=== PATIENT | female | born 1990 | race Caucasian/White ===

== ENCOUNTER 2016-09-27 00:55 | Emergency (ER) | payer OTHER ==
[~2016-09-27] VITALS: Ht 160 cm; Wt 68.2 kg
[~2016-09-27 00:55] MED LIST: MOTRIN PO; PRENTAB7 PO; TYLE325T5 PO
[2016-09-27 02:29] LABS: BASO # 0.1 K/mm3 (0.0-0.2); BASO % 0.7 % (0.0-1.0); EOS # 0.1 K/mm3 (0.0-0.50); EOS % 1.3 % (0.0-3.0); LARGE UNSTAINED CELL # 0.1 K/mm3 (0.0-0.4); LARGE UNSTAINED CELL % 1.4 % (0.0-4.0); LYMPH # 2.5 K/mm3 (1.5-6.5); LYMPH % 23.8 % (24.0-44.0); MEAN CORPUSCULAR HEMOGLOBIN 32.2 pg (27.0-33.0); MEAN CORPUSCULAR HGB CONC 34.4 g/dl (32.0-36.5); MEAN CORPUSCULAR VOLUME 93.6 fl (80.0-96.0); MONO # 0.6 K/mm3 (0.0-0.8); MONO % 6.2 % (0.0-5.0); NEUTROPHILS # 6.6 K/mm3 (1.8-7.7); NEUTROPHILS % 66.7 % (36.0-66.0); PLATELET COUNT, AUTOMATED 264 k/mm3 (150-450); RED CELL DISTRIBUTION WIDTH 12.6 % (11.5-14.5); WHITE BLOOD COUNT 9.9 K/mm3 (4.0-10.0)
[2016-09-27 02:33] LABS: CONTROL LINE HCG INT CTR LINE PRESENT; INR 0.92
--- NOTE | 2016-09-27 03:50 | REPUSA ---
CLINICAL HISTORY: Vaginal bleeding. COMPARISON: Not provided. TECHNIQUE: High resolution examination consisting of transvaginal ultrasound performed. FINDINGS: Heterogeneous echotexture of the uterus. Uterus is normal in size measuring 8.4x3.9x4.8 cm. Endometrium is normal in thickness measuring 5.3 mm. Anteverted uterus. Right ovary measures 3x2.3x2.2 cm. Left ovary measures 2.7x2.2x2.1 cm. Normal bilateral ovarian flow. Trace free fluid in the posterior cul-de-sac. IMPRESSION: Heterogeneous echotexture of the uterus. Trace free fluid in the pelvis.
[2016-09-27 04:33] VITALS: BP 122/73
--- NOTE | 2016-09-27 08:10 | ED PDOC ---
Post-Departure Follow-Up certified letter sent to patient Laurel Sy MD Sep 27, 2016 08:10
== END 2016-09-27 04:47 | disposition home or self-care (01) ==
LOC: M ED 00:55
DX: N93.8 Other specified abnormal uterine and vaginal bleeding (principal)

== ENCOUNTER 2017-03-09 12:06 | Emergency (ER) | payer OTHER ==
[2017-03-09 16:04] LABS: BASO % 0.3 % (0.0-1.0); EOS # 0.1 10^3/uL (0.0-0.50); EOS % 0.4 % (0.0-3.0); HEMATOCRIT 32.3 % (36.0-47.0); HEMOGLOBIN 11.3 g/dl (12.0-16.0); IMMATURE GRANULOCYTE # 0.1 10^3/uL (0-0); IMMATURE GRANULOCYTE % 0.8 % (0-0); LYMPH # 2.1 10^3/uL (1.5-6.5); LYMPH % 15.4 % (24.0-44.0); MEAN CORPUSCULAR HEMOGLOBIN 32.1 pg (27.0-33.0); MEAN CORPUSCULAR VOLUME 91.8 fl (80.0-96.0); MONO # 0.7 10^3/uL (0.0-0.8); MONO % 5.4 % (0.0-5.0); NEUTROPHILS # 10.4 10^3/uL (1.8-7.7); NEUTROPHILS % 77.7 % (36.0-66.0); PLATELET COUNT, AUTOMATED 259 10^3/uL (150-450); RED BLOOD COUNT 3.52 10^6/uL (4.00-5.40); RED CELL DISTRIBUTION WIDTH 12.6 % (11.5-14.5); WHITE BLOOD COUNT 13.4 10^3/uL (4.0-10.0)
[2017-03-09 16:27] LABS: CONTROL LINE MONO RF C INT CTR LINE PRESENT; MONO REFLEX EBV COMP NEGATIVE (NEGATIVE)
[2017-03-09 16:30] LABS: ERYTHROCYTE SEDIMENTATION RATE 18 mm/hr (0-20)
[2017-03-09 16:33] LABS: ALBUMIN 3.4 GM/DL (3.2-5.2); ALKALINE PHOSPHATASE 51 U/L (45-117); ALT/SGPT 24 U/L (12-78); ANION GAP 7 MEQ/L (8-16); AST/SGOT 19 U/L (7-37); BILIRUBIN,DIRECT < 0.1 MG/DL (0.0-0.2); BILIRUBIN,TOTAL 0.3 MG/DL (0.2-1.0); BLOOD UREA NITROGEN 9 MG/DL (7-18); CALCIUM LEVEL 8.6 MG/DL (8.5-10.1); CARBON DIOXIDE LEVEL 28 MEQ/L (21-32); CHLORIDE LEVEL 102 MEQ/L (98-107); CREATININE FOR GFR 0.58 MG/DL (0.55-1.02); GLOMERULAR FILTRATION RATE > 60.0 (>60); GLUCOSE, FASTING 81 MG/DL (70-105); POTASSIUM SERUM 3.7 MEQ/L (3.5-5.1); SODIUM LEVEL 137 MEQ/L (136-145); TOTAL PROTEIN 6.8 GM/DL (6.4-8.2)
[2017-03-12 00:07] LABS: EBV VIRAL CAPSID AG IgM <36.0 U/mL (0.0-35.9)
[2017-03-12 00:07] LABS: EBV VIRAL CAPSID AG IgG <18.0 U/mL (0.0-17.9)
== END 2017-03-09 17:18 | disposition home or self-care (01) ==
LOC: M ED 12:06
DX: L27.0 Generalized skin eruption due to drugs and medicaments taken internally (principal); T36.0X5A Adverse effect of penicillins, initial encounter; Z87.891 Personal history of nicotine dependence
CPT/HCPCS: 80076

== ENCOUNTER → 2017-03-26 | Outpatient (CLI) | payer OTHER ==
[2017-03-26 18:57] LABS: BASO # 0.1 10^3/uL (0.0-0.2); BASO % 0.5 % (0.0-1.0); EOS # 0.1 10^3/uL (0.0-0.50); EOS % 0.5 % (0.0-3.0); HEMATOCRIT 35.2 % (36.0-47.0); HEMOGLOBIN 11.8 g/dl (12.0-16.0); IMMATURE GRANULOCYTE # 0.1 10^3/uL (0-0); IMMATURE GRANULOCYTE % 0.8 % (0-0); LYMPH # 1.6 10^3/uL (1.5-6.5); LYMPH % 14.2 % (24.0-44.0); MEAN CORPUSCULAR HEMOGLOBIN 31.6 pg (27.0-33.0); MEAN CORPUSCULAR HGB CONC 33.5 g/dl (32.0-36.5); MEAN CORPUSCULAR VOLUME 94.1 fl (80.0-96.0); MONO # 0.6 10^3/uL (0.0-0.8); MONO % 5.8 % (0.0-5.0); NEUTROPHILS # 8.7 10^3/uL (1.8-7.7); NEUTROPHILS % 78.2 % (36.0-66.0); PLATELET COUNT, AUTOMATED 299 10^3/uL (150-450); RED BLOOD COUNT 3.74 10^6/uL (4.00-5.40); RED CELL DISTRIBUTION WIDTH 12.8 % (11.5-14.5); WHITE BLOOD COUNT 11.1 10^3/uL (4.0-10.0)
[2017-03-26 22:26] LABS: CHLAMYDIA DNA AMPLIFICATION NEGATIVE (NEGATIVE); GC DNA AMPLIFICATION NEGATIVE (NEGATIVE)
[2017-03-29 11:33] LABS: RUBELLA IgG QUALITATIVE IMMUNE (IMMUNE)
[2017-03-29 11:46] LABS: HBsAg Prenatal NEGATIVE (NEGATIVE)
[2017-03-29 12:02] LABS: HEPATITIS C VIRUS ABY INDEX 0.1 INDEX (<0.8)
[2017-03-29 12:03] LABS: HIV 1&2 SCREEN CENTAUR NEGATIVE (NEGATIVE)
== END ==
LOC: M SMT 11:33
DX: Z36.0 Encounter for antenatal screening for chromosomal anomalies (principal); Z3A.18 18 weeks gestation of pregnancy
CPT/HCPCS: 86762

== ENCOUNTER → 2017-04-01 | Outpatient (CLI) | payer OTHER | LOC: M RAD 11:48 | DX: Z3A.18 18 weeks gestation of pregnancy (principal) | CPT/HCPCS: 76811 ==

== ENCOUNTER → 2017-05-20 | Outpatient (CLI) | payer OTHER ==
[2017-05-20 13:33] LABS: BASO # 0.1 10^3/uL (0.0-0.2); BASO % 0.6 % (0.0-1.0); EOS # 0.2 10^3/uL (0.0-0.50); EOS % 1.4 % (0.0-3.0); HEMATOCRIT 30.9 % (36.0-47.0); HEMOGLOBIN 10.3 g/dl (12.0-16.0); IMMATURE GRANULOCYTE % 1.8 % (0-3.0); LYMPH # 1.9 10^3/uL (1.5-6.5); LYMPH % 15.7 % (24.0-44.0); MEAN CORPUSCULAR HEMOGLOBIN 31.9 pg (27.0-33.0); MEAN CORPUSCULAR HGB CONC 33.3 g/dl (32.0-36.5); MEAN CORPUSCULAR VOLUME 95.7 fl (80.0-96.0); MONO # 0.7 10^3/uL (0.0-0.8); MONO % 5.5 % (0.0-5.0); NEUTROPHILS # 9.3 10^3/uL (1.8-7.7); PLATELET COUNT, AUTOMATED 293 10^3/uL (150-450); RED BLOOD COUNT 3.23 10^6/uL (4.00-5.40); RED CELL DISTRIBUTION WIDTH 13.3 % (11.5-14.5); WHITE BLOOD COUNT 12.4 10^3/uL (4.0-10.0)
[2017-05-20 13:56] LABS: GLUCOSE CHALLENGE TEST 1 HOUR 107 MG/DL (LESS THAN 140)
== END ==
LOC: M SMT 09:48
DX: Z34.83 Encounter for supervision of other normal pregnancy, third trimester (principal)
CPT/HCPCS: 82950

== ENCOUNTER 2017-07-02 18:09 | Outpatient (CLI) | payer OTHER ==
[2017-07-02 19:13] LABS: APPEARANCE, URINE HAZY (CLEAR); BACTERIA, URINE AUTO 1+ (NEGATIVE); BILIRUBIN, URINE AUTO NEGATIVE (NEGATIVE); BLOOD, URINE BLOOD NEGATIVE (NEGATIVE); COLOR, URINE YELLOW (YELLOW); GLUCOSE, URINE (UA) AUTO NEGATIVE (NEGATIVE); KETONE, URINE AUTO 1+ mg/dL (NEGATIVE); LEUKOCYTE ESTERASE, URINE AUTO 1+ (NEGATIVE); MUCUS, URINE SMALL (NEGATIVE); NITRITE, URINE AUTO NEGATIVE (NEGATIVE); PROTEIN, URINE AUTO 1+ mg/dL (NEGATIVE); RBC, URINE AUTO 2 /HPF (0-3); SPECIFIC GRAVITY URINE AUTO 1.027 (1.002-1.035); SQUAMOUS EPITHELIAL CELL UR AU 5 /HPF (0-6); UROBILINOGEN, URINE AUTO 0.2 mg/dL (0.0-2.0); WBC, URINE AUTO 2 /HPF (0-3)
[2017-07-02] MEDS: LR 1,000 ML IV (21:45)
[2017-07-02] MEDS: TERBUTALINE SULFATE 1 MG/ML VIAL (J3105) SC (21:47)
[2017-07-02 21:59] LABS: BASO # 0.1 10^3/uL (0.0-0.2); BASO % 0.4 % (0.0-1.0); EOS # 0.1 10^3/uL (0.0-0.50); EOS % 0.3 % (0.0-3.0); HEMATOCRIT 34.3 % (36.0-47.0); HEMOGLOBIN 11.5 g/dl (12.0-15.5); LYMPH # 2.3 10^3/uL (1.5-6.5); LYMPH % 11.7 % (24.0-44.0); MEAN CORPUSCULAR HEMOGLOBIN 31.9 pg (27.0-33.0); MEAN CORPUSCULAR HGB CONC 33.5 g/dl (32.0-36.5); MONO # 1.1 10^3/uL (0.0-0.8); MONO % 5.4 % (0.0-5.0); NEUTROPHILS # 15.7 10^3/uL (1.8-7.7); NEUTROPHILS % 80.2 % (36.0-66.0); PLATELET COUNT, AUTOMATED 307 10^3/uL (150-450); RED BLOOD COUNT 3.61 10^6/uL (4.00-5.40); RED CELL DISTRIBUTION WIDTH 13.2 % (11.5-14.5); WHITE BLOOD COUNT 19.6 10^3/uL (4.0-10.0)
== END 2017-07-02 23:35 | disposition home or self-care (01) ==
LOC: M LDO 18:09
DX: O09.213 Supervision of pregnancy with history of pre-term labor, third trimester (principal); Z3A.32 32 weeks gestation of pregnancy; O47.03 False labor before 37 completed weeks of gestation, third trimester
CPT/HCPCS: J3105

== ENCOUNTER 2017-07-03 13:27 | Inpatient (IN) | payer OTHER ==
[2017-07-03] MEDS: PRENATAL VITAMINS CHEWABLE TABLET PO (09:00)
[2017-07-03 14:04] LABS: HEMATOCRIT 32.3 % (36.0-47.0); HEMOGLOBIN 11.3 g/dl (12.0-15.5); MEAN CORPUSCULAR HEMOGLOBIN 32.2 pg (27.0-33.0); PLATELET COUNT, AUTOMATED 330 10^3/uL (150-450); RED BLOOD COUNT 3.51 10^6/uL (4.00-5.40); RED CELL DISTRIBUTION WIDTH 13.2 % (11.5-14.5); WHITE BLOOD COUNT 16.3 10^3/uL (4.0-10.0)
[2017-07-03] MEDS ORDERED: OXYTOCIN 30 UNITS IN 0.9% NaCl 500ML IV BAG (J2590) As Ordered (14:08)
[2017-07-03] MEDS: LR 1,000 ML IV (14:17)
[2017-07-03] MEDS: OXYTOCIN DRIP 30 UNITS in APPROPRIATE DILUENT 1 EA IV (14:22)
[2017-07-03 14:27] LABS: CORD GAS ABE V 1.3; CORD GAS HCO3 V 23.2 MEQ/L; CORD GAS O2 SAT V 79.2 %; CORD GAS PCO2 V 29.2 mmHg; CORD GAS PH V 7.518 UNITS; CORD GAS PO2 V 29.4 mmHg; CORD GAS SBC V 25.2 MEQ/L; CORD GAS TCO2 V 24.1 MEQ/L
[2017-07-03 14:29] LABS: CORD GAS ABE A 0.2; CORD GAS HCO3 A 25.1 MEQ/L; CORD GAS O2 SAT A 61.5 %; CORD GAS PCO2 A 41.6 mmHg; CORD GAS PH A 7.399 UNITS; CORD GAS PO2 A 23.8 mmHg; CORD GAS SBC A 23.9 MEQ/L; CORD GAS TCO2 A 26.4 MEQ/L
[2017-07-03] MEDS ORDERED: MEASLES,MUMPS,RUBELLA VACCINE INJ (MMR-II) (90707) SC (14:30)
[2017-07-03] MEDS ORDERED: IBUPROFEN 800 MG TAB PO (14:30)
[2017-07-03] MEDS ORDERED: ACETAMINOPHEN 500 MG TAB PO (14:30)
[2017-07-03] MEDS ORDERED: METHYLERGONOVINE MALEATE 0.2 MG TAB PO (14:30)
[2017-07-03] MEDS ORDERED: DIBUCAINE 1% OINTMENT 30GM TOP (14:30)
[2017-07-03] MEDS ORDERED: RHOGAM 300 MCG (1500 IU) INJ (J2790) IM (14:30)
[2017-07-03 15:33] LABS: AMPHETAMINES URINE REFLEX NEGATIVE (NEGATIVE); BARBITURATES URINE REFLEX NEGATIVE (NEGATIVE); BENZODIAZEPINES URINE REFLEX NEGATIVE (NEGATIVE); CANNABINOIDS URINE REFLEX NEGATIVE (NEGATIVE); COCAINE METABOLITE URINE REFLE NEGATIVE (NEGATIVE); METHADONE URINE REFLEX NEGATIVE (NEGATIVE); OPIATES URINE REFLEX NEGATIVE (NEGATIVE); PHENCYCLIDINE URINE REFLEX NEGATIVE (NEGATIVE)
[2017-07-04] MEDS: LR 1,000 ML IV ×2 (06:17→14:17)
[2017-07-04] MEDS: DOCUSATE SODIUM 100 MG CAP PO (08:27)
[2017-07-04] MEDS: PRENATAL VITAMINS CHEWABLE TABLET PO (08:27)
[2017-07-05] MEDS: LR 1,000 ML IV ×3 (03:49→03:51)
[2017-07-05] MEDS: PRENATAL VITAMINS CHEWABLE TABLET PO (07:39)
== END 2017-07-05 09:45 | disposition home or self-care (01) | DRG 560 ==
LOC: M LDO 13:27 → M LDI 13:49 → M OBS 15:55
PROVIDERS: Obstetrics & Gynecology
PROC: 10E0XZZ Delivery of Products of Conception, External Approach (ICD-10-PCS; principal; 2017-07-03)
PROC: 10907ZC Drainage of Amniotic Fluid, Therapeutic from Products of Conception, Via Natural or Artificial Opening (ICD-10-PCS; 2017-07-03)
DX: O60.14X0 Preterm labor third trimester with preterm delivery third trimester, not applicable or unspecified (principal); O69.81X0 Labor and delivery complicated by cord around neck, without compression, not applicable or unspecified; Z3A.32 32 weeks gestation of pregnancy; Z87.891 Personal history of nicotine dependence; Z37.0 Single live birth

== ENCOUNTER → 2017-09-10 | Outpatient (CLI) | payer OTHER | LOC: M ADAMS 14:29 | DX: M25.562 Pain in left knee (principal) | CPT/HCPCS: 73564 ==

== ENCOUNTER 2018-01-21 09:09 | Emergency (ER) | payer OTHER | END 2018-01-21 10:46 | disposition home or self-care (01) | LOC: M ED 09:09 | DX: S16.1XXA Strain of muscle, fascia and tendon at neck level, initial encounter (principal); V49.49XA Driver injured in collision with other motor vehicles in traffic accident, initial encounter; Y92.410 Unspecified street and highway as the place of occurrence of the external cause | CPT/HCPCS: 70450 ==

== ENCOUNTER 2018-07-02 07:45 | Emergency (ER) | payer OTHER ==
[~2018-07-02] VITALS: Ht 160 cm; Wt 71.1 kg
[~2018-07-02 07:45] MED LIST changes: +AMOX875T PO; +BENA25TA10 PO; +COLA100C5 PO; +CYCL10TA PO; +IBUP-1114 PO; +IBUP80TA PO; +MAPA500T2 PO; +PENI250REC PO; +PRENTAB9 PO
[2018-07-02 09:39] VITALS: BP 105/61
--- NOTE | 2018-07-02 09:52 | REP ---
RIGHT WRIST, FOUR VIEWS: HISTORY: Popping sensation. There is no acute fracture or dislocation. The joint spaces are normal in appearance. IMPRESSION: There is no acute fracture or dislocation. Electronically Signed by Hussain Sapp MD 07/02/2018 09:53 A
== END 2018-07-02 09:48 | disposition home or self-care (01) ==
LOC: M ED 07:45
DX: S69.91XA Unspecified injury of right wrist, hand and finger(s), initial encounter (principal); X58.XXXA Exposure to other specified factors, initial encounter; Y92.89 Other specified places as the place of occurrence of the external cause; Y99.0 Civilian activity done for income or pay; F17.210 Nicotine dependence, cigarettes, uncomplicated

== ENCOUNTER 2018-07-07 17:59 | Emergency (ER) | payer OTHER ==
[~2018-07-07] VITALS: Ht 160 cm; Wt 69.1 kg
[2018-07-07 17:59] VITALS: BP 127/62
[2018-07-07] MEDS ORDERED: TYLETAB14 PO (18:35)
--- NOTE | 2018-07-07 18:44 | REP ---
REASON FOR EXAM: [place] a pop. No trauma. FINDINGS: The joint spaces are symmetric and relatively well maintained. There is no evidence of acute fracture or destructive osseous lesion. IMPRESSION: Negative hand. Electronically Signed by Deep Montoya DO 07/07/2018 06:59 P
[2018-07-07] MEDS ORDERED: NORCO, ANEXSIA 5/325MG TABLET (HYDROcodone/ACETAMINOPHEN) PO ONE (18:45)
== END 2018-07-07 18:58 | disposition home or self-care (01) ==
LOC: M ED 17:59
DX: S69.91XA Unspecified injury of right wrist, hand and finger(s), initial encounter (principal); X50.9XXA Other and unspecified overexertion or strenuous movements or postures, initial encounter; Y92.89 Other specified places as the place of occurrence of the external cause; Y99.0 Civilian activity done for income or pay; F17.210 Nicotine dependence, cigarettes, uncomplicated

== ENCOUNTER 2019-04-12 08:09 | Emergency (ER) | payer OTHER ==
[~2019-04-12] VITALS: Ht 160 cm; Wt 69.9 kg
[~2019-04-12 08:09] MED LIST changes: +TYLETAB14 PO
[2019-04-12] MEDS ORDERED: ACET1TAB55 PO (08:21)
[2019-04-12] MEDS ORDERED: KETOROLAC 30 MG/ML VIAL (J1885) IV ONE (10:00)
[2019-04-12] MEDS ORDERED: NS 1,000 ML IV ONE (10:00)
[2019-04-12 10:28] LABS: BASO # 0.1 10^3/uL (0.0-0.2); BASO % 0.7 % (0.0-1.0); EOS # 0.1 10^3/uL (0.0-0.5); EOS % 0.7 % (0.0-3.0); HEMATOCRIT 42.5 % (36.0-47.0); LYMPH % 25.9 % (24.0-44.0); MEAN CORPUSCULAR HEMOGLOBIN 31.7 pg (27.0-33.0); MEAN CORPUSCULAR HGB CONC 32.9 g/dl (32.0-36.5); MEAN CORPUSCULAR VOLUME 96.4 fl (80.0-96.0); MONO # 0.6 10^3/uL (0.0-0.8); MONO % 8.1 % (0.0-5.0); NEUTROPHILS # 4.9 10^3/uL (1.5-8.5); NEUTROPHILS % 64.2 % (36.0-66.0); PLATELET COUNT, AUTOMATED 250 10^3/uL (150-450); RED BLOOD COUNT 4.41 10^6/uL (4.00-5.40); WHITE BLOOD COUNT 7.6 10^3/uL (4.0-10.0)
[2019-04-12 10:53] LABS: ALBUMIN 4.2 GM/DL (3.2-5.2); BILIRUBIN,DIRECT 0.1 MG/DL (0.0-0.2); BILIRUBIN,TOTAL 0.2 MG/DL (0.2-1.0); TOTAL PROTEIN 7.1 GM/DL (6.4-8.2)
--- NOTE | 2019-04-12 11:06 | REP ---
RENAL ULTRASOUND: Real-time sonographic evaluation of the kidneys performed. Kidneys are normal in size and echotexture, right kidney measuring 12.1 x 5.1 x 3.7 cm and left kidney 12.2 x 3.9 x 5.2 cm. There is no hydronephrosis, renal mass, or nephrolithiasis. Ureteral jets are not visualized in the bladder with Doppler color evaluation, with only minimal bladder distension. IMPRESSION: No hydronephrosis bilaterally and no definite renal calculus. Electronically Signed by Alpesh Lantigua MD 04/12/2019 05:05 P
--- NOTE | 2019-04-12 11:46 | REP ---
Pelvic ultrasound including transabdominal, endovaginal and Doppler ultrasound assessment: The patient had a LEEP procedure 1.5 years ago. She currently complains of suprapubic pain and left lower quadrant pain. The uterus is anteverted and normal size measuring 8.6 x 3.5 x 5.0 cm. The myometrium is mildly heterogeneous . The endometrium is not thickened measuring 7.6 mm. Right ovary: The right ovary measures 3.6 x 2.2 x 2.9 cm and is normal size. There is a complex right ovarian cyst measuring 2.6 x 1.8 x 2.3 cm. This cyst has a vascular rim. There is a left ovarian vascular flow with the Doppler resistive index in the parenchymal arteries measuring 0.56. Left ovary: The left ovary measures 2.9 x 2.0-0.8 cm and is normal size. There is no dominant mass or cyst. There is vascular flow. The Doppler resistive index of the parenchymal arteries measures 0.56. There is mild to moderate volume of free fluid in the posterior cul-de-sac. Impression: The there is a complex 2.6 cm right ovarian cyst. There is vascular flow in both ovaries. There is a mild/moderate volume of free fluid in the posterior cul-de-sac. Electronically Signed by Alpesh Arrington MD 04/12/2019 11:37 A
[2019-04-12 13:20] LABS: CHLAMYDIA DNA AMPLIFICATION NEGATIVE (NEGATIVE); GC DNA AMPLIFICATION NEGATIVE (NEGATIVE)
[2019-04-12] MEDS ORDERED: KETO10TAB PO (13:32)
[2019-04-12 13:43] VITALS: BP 114/68
--- NOTE | 2019-04-15 09:33 | ED PDOC ---
Post-Departure Follow-Up dr benjamin faxed formal report of pelvic [place] for [facility] [place] MD Apr 15, 2019 09:33
== END 2019-04-12 14:09 | disposition home or self-care (01) ==
LOC: M ED 08:09
DX: N83.291 Other ovarian cyst, right side (principal); M54.5 Low back pain; R10.30 Lower abdominal pain, unspecified; F17.200 Nicotine dependence, unspecified, uncomplicated
CPT/HCPCS: 76775; 76830; 76856; 80047; 80076; 81001; 83690; 85025; 87086; 87210; 87661; 93976; 96374; 99284; J1885

== ENCOUNTER → 2019-04-20 | Outpatient (CLI) | payer OTHER ==
[~2019-04-20] MED LIST changes: +ACET1TAB55 PO; +KETO10TAB PO
--- NOTE | 2019-04-20 08:28 | REP ---
Clinical: Follow up ovarian cyst. Technique: Transabdominal pelvic ultrasound with color Doppler evaluation of the ovaries. Findings: Bladder is partially collapsed and grossly normal. Heterogeneous anteverted uterus measures 7.1 x 4.4 x 4.6 cm. Endometrial complex measures 10 mm thickness. No uterine or endometrial abnormalities appreciated. The bilateral ovaries are normal in appearance and vascularity without torsion. Right ovary measures 3.2 x 1.7 x 2.4 cm (RI 0.50). Left ovary measures 2.5 x 2.3 x 1.7 cm (RI 0.30). No pelvic fluid or adnexal mass lesion. Impression: Normal pelvic ultrasound. Previous physiologic right ovarian cyst resolved.
== END ==
LOC: M WHC 07:50
PROVIDERS: ATTEND Obstetrics & Gynecology
DX: N83.209 Unspecified ovarian cyst, unspecified side (principal)

== ENCOUNTER 2021-02-20 06:34 | Emergency (ER) | payer OTHER ==
[~2021-02-20] VITALS: Ht 160 cm; Wt 61.4 kg
[~2021-02-20 06:34] MED LIST changes: +CYCL-707 PO; -CYCL10TA PO
[2021-02-20 06:35] VITALS: BP 105/60
[2021-02-20] MEDS ORDERED: AFRI0.058 (07:00)
[2021-02-20] MEDS ORDERED: BENZ200C70 PO (07:00)
== END 2021-02-20 07:20 | disposition home or self-care (01) ==
LOC: M ED 06:34
DX: U07.1 COVID-19 (principal); H65.02 Acute serous otitis media, left ear; H92.02 Otalgia, left ear; S16.1XXA Strain of muscle, fascia and tendon at neck level, initial encounter; X58.XXXA Exposure to other specified factors, initial encounter; Y92.9 Unspecified place or not applicable; Y93.9 Activity, unspecified; Y99.9 Unspecified external cause status

== ENCOUNTER → 2022-03-05 | Outpatient (REF) | payer OTHER ==
[~2022-03-05] MED LIST changes: +BENZ200C70 PO; +OXYM15SP2
== END ==
LOC: M LAB REF 16:16
PROVIDERS: ATTEND Physician Assistant
DX: J02.9 Acute pharyngitis, unspecified (principal)

== ENCOUNTER → 2023-07-19 | Outpatient (REF) ==
[2023-07-20 08:14] LABS: HERPES ZOSTER, VARICELLA IgG 1322 index (Immune >165); RUBEOLA IgG ANTIBODY <13.5 AU/mL (Immune >16.4)
== END ==
LOC: M LAB 12:05
PROVIDERS: ATTEND Nurse Practitioner Adult Health
DX: Z00.00 Encounter for general adult medical examination without abnormal findings (principal)

== ENCOUNTER 2023-11-28 19:52 | Outpatient (CLI) | payer OTHER ==
[~2023-11-28] VITALS: Ht 160 cm; Wt 68.7 kg
[2023-11-28 20:04] VITALS: BP 122/68
== END 2023-11-28 21:45 | disposition home or self-care (01) ==
LOC: M LDO 19:52
PROVIDERS: ATTEND Obstetrics & Gynecology
DX: O47.03 False labor before 37 completed weeks of gestation, third trimester (principal); Z3A.33 33 weeks gestation of pregnancy
CPT/HCPCS: 59025; G0463

== ENCOUNTER 2024-10-26 13:18 | Day surgery (SDC) | payer OTHER ==
[~2024-10-26] VITALS: Ht 160 cm; Wt 77.0 kg
[~2024-10-26 13:18] MED LIST changes: +IBUP200C29 PO; +KETAMINE HCL 200 MG/20 ML VIAL As Ordered ONE; +KETOROLAC 30 MG/ML 1 ML VIAL As Ordered ONE; +LIDOCAINE 2% 100 MG/5 ML SDV (FOR ANES.) As Ordered ONE; +MIDAZOLAM INJ 2 MG/2 ML VIAL As Ordered ONE; +ONDANSETRON 4MG 2ML VIAL As Ordered ONE; +ROCURONIUM BROMIDE 50MG/5ML VIAL As Ordered ONE; +SUGAMMADEX SODIUM 500 MG/5 ML VIAL As Ordered ONE; +dexAMETHasone 4 MG/ML 1 ML VIAL As Ordered ONE
[2024-10-26 13:56] LABS: PLATELET COUNT, AUTOMATED 362 10^3/uL (150-450)
[2024-10-26] MEDS: ceFAZolin SOD 2 GM IV ONCE IV ONE (14:23)
[2024-10-26] MEDS ORDERED: OXYC1TAB23 PO (14:26)
[2024-10-26] MEDS ORDERED: ACETAMINOPHEN 1000MG/100ML IV BAG As Ordered ONE (15:33)
[2024-10-26] MEDS ORDERED: LR 1,000 ML IV SCH (15:40)
[2024-10-26] MEDS ORDERED: ONDANSETRON 4MG 2ML VIAL IV PRN (15:40)
[2024-10-26] MEDS ORDERED: HYDROMORPHONE HCL 0.5 MG/0.5 ML SYRINGE IV PRN (15:40)
[2024-10-26 16:50] VITALS: BP 137/74; TEMP 97.3; O2SAT 98
== END 2024-10-26 17:15 | disposition home or self-care (01) ==
LOC: M SDC 13:18
PROVIDERS: ATTEND Specialist
DX: N92.0 Excessive and frequent menstruation with regular cycle (principal); N87.9 Dysplasia of cervix uteri, unspecified; Z88.1 Allergy status to other antibiotic agents
CPT/HCPCS: 36415; 58571; 81025; 85027; 86850; 86900; 86901; 88307; J0131; J0665; J0690; J1100; J1885; J2250; J2405; J3010; S2900